=== PATIENT | female | born 1945 | race Caucasian/White ===

== ENCOUNTER 2019-05-04 14:01 | Inpatient (IN) | payer MEDICARE, BC ==
[~2019-05-04] VITALS: Ht 162.6 cm; Wt 84.8 kg
[~2019-05-04 14:01] MED LIST: AMITRIPTYLINE H25 MG PO; METOPROLOL SUCC25 MG PO; NEXIUM; PANTOPRAZOLE SO40 MG PO; ROPINIROLE HCL1 MG PO; SIMVASTATIN20 MG PO; TYLENOL WITH C1 EACH PO; VESICARE5 MG PO; Z.0.AMLODIPINE BESYL PO; Z.0.SIMVASTATIN20 MG PO
--- OUTSIDE RECORDS SUMMARY | 2019-05-04 14:05 | XMS REPORT ---
Author Author [facility] Address Unknown Phone Unavailable Care Team Providers Care Fleet Administrator Name Role Phone Unavailable Unavailable Payers Payer Name Policy Type Policy Number Effective Date Expiration Date Problems This patient has no known problems. Allergies, Adverse Reactions, Alerts Allergy Name Allergy Type Status Severity Reaction(s) Onset Date Inactive Date Treating Clinician Comments morphine DA Active SV 2017-09-04 00:00:00 Medications This patient has no known medications.
[2019-05-04] MEDS ORDERED: SODIUM CHLORIDE 0.9% 1000ML 1,000 ML IV STA (14:14)
[2019-05-04] MEDS ORDERED: METHYLPREDNISOLONE SOD SUCC 125 MG/2ML VIAL IV STA (14:14)
[2019-05-04] MEDS ORDERED: ALBUTEROL SULF 0.083% NEB SOLN 3 ML NEB NEB STA (14:14)
[2019-05-04] MEDS ORDERED: IPRATROPIUM BROMIDE 0.02% 2.5 ML NEB NEB STA (14:14)
[2019-05-04 16:19] LABS: BASOPHILS # (AUTO) 0.1 (0.0-0.1); BASOPHILS % 0.7 % (0.0-1.0); EOSINOPHILS # (AUTO) 0.2 (0.0-0.4); EOSINOPHILS % 2.3 % (0.0-6.0); HEMOGLOBIN 7.6 g/dL (12.0-16.0); LYMPHOCYTES # (AUTO) 1.6 (1.0-3.2); LYMPHOCYTES % 23.5 % (18.0-39.1); MEAN CORPUSCULAR HEMOGLOBIN 27.5 pg (28-32); MEAN CORPUSCULAR HGB CONC 30.4 g/dL (31-35); MEAN CORPUSCULAR VOLUME 90.6 fL (81-99); MONOCYTES # (AUTO) 0.6 (0.2-0.8); MONOCYTES % 8.2 % (4.4-11.3); NEUTROPHILS # (AUTO) 4.5 (2.1-6.9); NEUTROPHILS % 64.9 % (38.7-80.0); PLATELET COUNT 244 x10e3/uL (140-360); RED BLOOD COUNT 2.76 x10e6/uL (3.6-5.1); RED CELL DISTRIBUTION WIDTH 13.9 % (11.7-14.4)
[2019-05-04 16:20] LABS: BILIRUBIN,URINE NEGATIVE (NEGATIVE); CLARITY,URINE CLEAR (CLEAR); COLOR,URINE YELLOW (YELLOW); KETONES,URINE NEGATIVE (NEGATIVE); LEUKOCYTE ESTERASE ,URINE NEGATIVE (NEGATIVE); NITRITE,URINE NEGATIVE (NEGATIVE); PROTEIN,URINE DIPSTICK NEGATIVE (NEGATIVE); URINE UROBILINOGEN 0.2 mg/dL (0.2 - 1)
[2019-05-04 16:23] LABS: INR 1.25; PARTIAL THROMBOPLASTIN TIME 35.5 seconds (23.8-35.5); PROTHROMBIN TIME 16.3 seconds (11.9-14.5)
--- NOTE | 2019-05-04 16:29 | Diagnostic Imaging Report ---
EXAMINATION: CHEST SINGLE (PORTABLE) INDICATION: ^ERMD ORDER ^[id number] ^1450 ^Y COMPARISON: None FINDINGS: AP view TUBES and LINES: 2-lead pacemaker device overlying the left upper chest with leads overlying the right atrial appendage and right ventricle. LUNGS: Lungs are well inflated. Bilateral central pulmonary vascular congestion. No lobar consolidations. PLEURA: No pleural effusion or pneumothorax. HEART AND MEDIASTINUM: Moderate enlargement of the cardiac silhouette. Tortuous thoracic aorta. BONES AND SOFT TISSUES: Status post open reduction and internal fixation of the left humerus. Hardware appears intact. Soft tissues are unremarkable. UPPER ABDOMEN: No free air under the diaphragm. IMPRESSION: Cardiomegaly with associated central pulmonary vascular congestion. Signed by: Dr. Kayy Narvaez M.D. on 05/04/2019 4:25 PM
[2019-05-04 16:32] LABS: ALBUMIN 3.7 g/dL (3.5-5.0); ALBUMIN/GLOBULIN RATIO 1.1 (0.8-2.0); ANION GAP 19.5 mmol/L (8-16); CALCIUM 9.1 mg/dL (8.4-10.2); CREATININE, SERUM 0.99 mg/dL (0.57-1.11); MAGNESIUM 2.2 MG/DL (1.3-2.1); POTASSIUM 3.5 mmol/L (3.5-5.1)
[2019-05-04 16:43] LABS: BACTERIA,URINE RARE /HPF; EPITHELIAL CELLS,URINE RARE /LPF; RBC,URINE 0-5 /HPF (0-5); WBC,URINE (MAN) 0-5 /HPF (0-5)
[2019-05-04] MEDS ORDERED: FUROSEMIDE INJ 10 MG/ML 2 ML VIAL IV PRN (16:45)
[2019-05-04 16:52] LABS: CREATINE KINASE MB 3.8 ng/mL (0-5.0); THYROID STIMULATING HORMONE 2.43 uIU/mL (0.350-4.940)
[2019-05-04] MEDS ORDERED: SODIUM CHLORIDE 0.9% 500ML 500 ML IV ONE (17:00)
[2019-05-04] MEDS: AZITHROMYCIN 500MG/NS 250 ML 250 ML IV SCH (17:27)
[2019-05-04] MEDS ORDERED: SODIUM CHLORIDE 0.9% 250ML 250 ML IV ONE (17:30)
[2019-05-04] MEDS ORDERED: ONDANSETRON HCL INJ 2MG/ML 2ML 2 MG/ML VIAL IV PRN (17:30)
[2019-05-04] MEDS ORDERED: PANTOPRAZOLE 40 MG 10ML VIAL IV ONE (18:00)
[2019-05-04] MEDS ORDERED: VANCOMYCIN 1GM/NS 250 ML 250 ML IV ONE (18:30)
[2019-05-04] MEDS: CEFEPIME 1GM/NS 0.9% 50 ML 50 ML IV SCH (18:54)
[2019-05-04] MEDS ORDERED: IPRATROPIUM BROMIDE 0.02% 2.5 ML NEB NEB SCH (19:00)
[2019-05-04] MEDS ORDERED: ALBUTEROL SULF 0.083% NEB SOLN 3 ML NEB NEB SCH (19:00)
[2019-05-04 21:22] VITALS: BP 127/72
--- NOTE | 2019-05-04 21:30 | NUR ---
GOT REPORT FROM SIENA, ER NURSE. PATIENT ARRIVED VIA WHEELCHAIR. PATIENT IN NO PAIN OR DISTRESS. CALL LIGHT WITHIN REACH.
[2019-05-04 22:43] VITALS: BP 127/72
[2019-05-04] MEDS ORDERED: ROPINIROLE HCL 2 MG TAB PO SCH (22:50)
[2019-05-04 23:26] VITALS: BP 118/59
[2019-05-04] MEDS: ALBUTEROL/IPRATROPIUM 3 ML NEB INH SCH (23:30)
[2019-05-04] MEDS ORDERED: SODIUM CHLORIDE 0.9% 250ML 250 ML ONE (23:44)
[2019-05-04] MEDS: SIMVASTATIN 20 MG TAB PO SCH (23:57)
[2019-05-04] MEDS: METOPROLOL SUCCINATE 25 MG TAB XL PO SCH (23:57)
[2019-05-05] VITALS (8 sets, daily range): BP systolic 111–141; BP diastolic 55–63
--- NOTE | 2019-05-05 | NUR ---
new iv #20 gauge placed to left forearm x 3 sticks. previous iv to left forearm removed due to redness and swelling at the site. clean dressing applied.
[2019-05-05 02:15] LABS: CREATINE KINASE MB 7.3 ng/mL (0-5.0)
[2019-05-05] MEDS: ALBUTEROL/IPRATROPIUM 3 ML NEB INH SCH ×6 (03:40→23:02)
[2019-05-05 05:13] LABS: HEMATOCRIT 24.1 % (34.2-44.1); HEMOGLOBIN 7.3 g/dL (12.0-16.0); LYMPHOCYTES # (AUTO) 0.5 (1.0-3.2); LYMPHOCYTES % 9.6 % (18.0-39.1); MEAN CORPUSCULAR HEMOGLOBIN 27.1 pg (28-32); MEAN CORPUSCULAR HGB CONC 30.3 g/dL (31-35); MEAN CORPUSCULAR VOLUME 89.6 fL (81-99); MONOCYTES # (AUTO) 0.1 (0.2-0.8); MONOCYTES % 1.7 % (4.4-11.3); NEUTROPHILS # (AUTO) 4.8 (2.1-6.9); PLATELET COUNT 173 x10e3/uL (140-360); RED BLOOD COUNT 2.69 x10e6/uL (3.6-5.1); RED CELL DISTRIBUTION WIDTH 14.3 % (11.7-14.4)
[2019-05-05] MEDS ORDERED: SODIUM CHLORIDE 0.9% 250ML 250 ML ONE (05:14)
[2019-05-05 05:44] LABS: ALANINE AMINOTRANSFERASE 18 IU/L (0-55); ALBUMIN/GLOBULIN RATIO 1.1 (0.8-2.0); ALKALINE PHOSPHATASE 68 IU/L (40-150); ANION GAP 14.5 mmol/L (8-16); BLOOD UREA NITROGEN 17 mg/dL (7-26); BUN/CREATININE RATIO 19 (6-25); CALCIUM 8.5 mg/dL (8.4-10.2); CARBON DIOXIDE 20 mmol/L (22-29); CHLORIDE 109 mmol/L (98-107); CHOLESTEROL 119 MD/DL (0-199); CREATININE, SERUM 0.89 mg/dL (0.57-1.11); EST GLOMERULAR FILTRATION RATE > 60 ML/MIN (60-); GLUCOSE 177 mg/dL (74-118); HDL CHOLESTEROL 59 MG/DL (40-60); LDL CHOLESTEROL 51 MG/DL (60-130); POTASSIUM 3.5 mmol/L (3.5-5.1); SODIUM 140 mmol/L (136-145); TRIGLYCERIDES 47 MG/DL (0-149)
[2019-05-05] MEDS: CEFEPIME 1GM/NS 0.9% 50 ML 50 ML IV SCH ×2 (06:02→17:09)
--- NOTE | 2019-05-05 07:00 | NUR ---
RCD PT AT BED PT IS ALERT AND ORIENTED PT RESTING ON BED AND ON BLOOD TRANSFUSION LT FOREARM SHOWS REDNESS AND SWELLING DUE TO IV INFILTRATION BED LOW AND LOCKED CALL LIGHT IN REACH
--- NOTE | 2019-05-05 07:38 | NUR ---
GAVE REPORT TO ONCOMING NURSE. CALL LIGHT WITHIN REACH. PATIENT IN BED
--- NOTE | 2019-05-05 08:20 | NUR ---
BLOOD TRANSFUSION COMPLETED VITALS CHECKED PT RESTING ON BED
[2019-05-05] MEDS: AZITHROMYCIN 500MG/NS 250 ML 250 ML IV SCH (09:00)
[2019-05-05] MEDS: METOPROLOL SUCCINATE 25 MG TAB XL PO SCH ×2 (09:00→17:00)
[2019-05-05] MEDS: PANTOPRAZOLE 40 MG 10ML VIAL IV SCH ×2 (09:00→17:00)
--- NOTE | 2019-05-05 12:59 | NUR ---
SPOKE ABOUT PT FOR BARRIER ROUNDS, HGB IS 7.3, RECVD 2 UNITS, ON 2 ABX, POSSIBLE DISCHARGE ON 05/07/2019
[2019-05-05] MEDS ORDERED: ELIQUIS PO (14:32)
[2019-05-05 14:46] LABS: CREATINE KINASE MB 21.4 ng/mL (0-5.0)
[2019-05-05] MEDS ORDERED: FUROSEMIDE 20 MG TAB PO NR (15:45)
--- NOTE | 2019-05-05 17:00 | NUR ---
Nutrition Screen Note RD Recommendation for Physician: -Continue cardiac diet as ordered Plan of Care: RD following, monitoring for tolerance and adequacy Nutrition reason for involvement: Diagnosis Primary Diagnose(s): CHF exacerbation, COPD PMH: no H&P in chart Ht: 64in Wt: 187lb BMI: 32.1kg/m2 IBW: 120lb +/- 10% RD Assessment: (05/05) Chart reviewed. Labs and meds reviewed. 73yo F, who was admitted for CHF exacerbation. Currently on Lasix. Visited pt in the room. Pt reported good appetite prior and during hospital stay. No GI complains reported. Pt denied any chewing or swallowing difficulty. Her weight has fluctuated between 187-200lbs due to fluids gain/loss. Pt has received previous education on cardiac diet. No questions at this time. Current Diet: cardiac diet Malnutrition Evaluation (05/05/2019) The patient does not meet criteria for a specified degree of malnutrition at this time. Will re-evaluate at follow-up as appropriate. Diet Education Needs Assessment: Diet education indicated, pt is not interested. Pt reported not using any salt at home. Nutrition Care Level: low Signed: Michelle Zeng, MS, RD, LD
--- NOTE | 2019-05-05 18:12 | Consultation ---
DATE OF CONSULTATION: Cardiology Consultation HISTORY OF PRESENT ILLNESS: This is a 73-year-old woman with a history of: 1. Chronic systolic congestive heart failure. 2. Implantable cardioverter-defibrillator. 3. Atrial fibrillation. 4. Chronic obstructive pulmonary disease. Who presented to the emergency department with progressively worsening shortness of breath. The patient states that her symptoms began day prior to admission, dyspnea was moderate in intensity, no other exacerbating or relieving factors. No associated chest pain. Upon arrival here, she was noted to be hemodynamically stable with an elevated BNP with normal troponin values. REVIEW OF SYSTEMS: A 12-point review of systems was conducted and is negative otherwise stated above in the HPI. PAST MEDICAL HISTORY: As stated above in the HPI. PAST SURGICAL HISTORY: Cholecystectomy, appendectomy, ICD, hip replacement. FAMILY HISTORY: Noncontributory. SOCIAL HISTORY: No illicit drug, alcohol, or tobacco use. ALLERGIES: MORPHINE. MEDICATIONS: See medications reconciliation form. PHYSICAL EXAMINATION: VITAL SIGNS: Temperature is 97.8, heart rate is 73, respirations 16, blood pressure is 112/57, ox saturation is 98% on 2 L nasal cannula. GENERAL: A well appearing, well built, no apparent distress. Alert and oriented x3. HEENT: Head is normocephalic, atraumatic. Eyes, the extraocular muscles are intact. Conjunctivae are clear. NECK: No JVD. No bruits. CARDIOVASCULAR: Regular rate and rhythm. No murmurs. LUNGS: Clear to auscultation. ABDOMEN: Soft, nontender, nondistended. EXTREMITIES: No edema. VASCULAR: 2+ pulses. SKIN: Warm, dry, intact. NEUROLOGIC: No focal deficits noted. LABORATORY DATA: Reviewed. Hemoglobin is 7.3. Creatinine is 0.89. CK is 502, CK-MB is 8, troponin I is 0.002. BNP is 266. Chest x-ray shows cardiomegaly with central pulmonary vascular congestion. Telemetry monitoring reveals normal sinus rhythm. IMPRESSION: 1. Acute anemia. 2. Pvdoq-gx-vdtcdrd systolic congestive heart failure. 3. Chronic obstructive pulmonary disease. 4. Hypertension. 5. Hyperlipidemia. 6. Elevated cardiac enzymes. RECOMMENDATIONS: Continue current cardiovascular medications including Lasix, simvastatin, metoprolol. Treatment of anemia per primary team. Elevated enzymes, likely related to rhabdomyolysis rather than acute coronary syndrome. Continue to monitor clinically. We will check a 2D echocardiogram. DO TOMAS Montoya/GENEVA /[id number]
--- NOTE | 2019-05-05 18:41 | NUR ---
PT RESTING ON BED BED SIDE REPORT GIVEN TO ONCOMING NURSE
[2019-05-05] MEDS: ROPINIROLE HCL 1 MG TAB PO SCH (20:48)
[2019-05-05] MEDS: SIMVASTATIN 20 MG TAB PO SCH (20:48)
[2019-05-06] VITALS (7 sets, daily range): BP systolic 123–176; BP diastolic 55–79
--- NOTE | 2019-05-06 01:53 | History and Physical ---
REASON FOR CONSULT: Symptomatic anemia. HISTORY OF PRESENTING ILLNESS: A 73-year-old very pleasant white female, who is a very good historian. She is giving me such a thorough history regarding anemia workup done in the past. She stated that she has been known to have a chronic anemia with stool occult blood positive. She sees my associate, Dr. Gonzalez. She has had 4 upper endoscopies and 2 to 3 colonoscopies. One upper endoscopy revealed some ulcer, latest 3 upper endoscopies did not reveal any source of blood loss. Colonoscopy revealed diverticulosis only. She has received blood transfusion on as needed basis. She has also received intravenous iron in the past. The cause/source of anemia and the GI tract has not been identified yet. The patient cannot get a small bowel video capsule exam as she has defibrillator/pacemaker. The patient otherwise denies any nomi melena. She has a chronic paroxysmal atrial fibrillation. She was recently started on Eliquis. She got admitted in the hospital due to symptomatic due to shortness of breath and weakness on minimal exertion. Blood work revealed hemoglobin of 7.6 and MCV of 90.6. Stool was tested positive for occult blood. The patient otherwise denies any active GI symptoms. REVIEW OF SYSTEMS: A 12-point system reviewed, symptomatology is limited as per HPI. PAST MEDICAL HISTORY: Chronic congestive heart failure, atrial fibrillation, COPD, chronic anemia. PAST SURGICAL HISTORY: Cholecystectomy, appendectomy, ICD, hip replacement, multiple colonoscopies, and upper endoscopies as stated in HPI. FAMILY HISTORY: Negative for any GI or [employer] F[employer] malignancies. SOCIAL HISTORY: No smoking, alcohol, or any illicit drug use. ALLERGIES: MORPHINE. HOME MEDICATIONS: Metoprolol, ropinirole, simvastatin, Eliquis. Inpatient medication list reviewed as per MAR. PHYSICAL EXAMINATION: VITAL SIGNS: Temperature 96.6, pulse 77, respirations 20, blood pressure 141/63, oxygen saturation 93% on room air. GENERAL: Obese body habitus, not in any acute distress. Oral mucosa is moist. Anicteric sclerae. CVS: S1, S2. Irregularly irregular. LUNGS: Bilaterally grossly clear. ABDOMEN: Obese, soft, nondistended, nontender. No palpable mass or hernia. Positive bowel sounds. EXTREMITIES: Warm. No leg edema. LABORATORY DATA: WBC 5.44, hemoglobin 7.3 down from 7.6, hematocrit 24.1, MCV 89.6, platelet count 173. Sodium 140, potassium 3.5, chloride 109, bicarb 20. BUN 17, creatinine 0.89. Liver enzymes normal. Chest x-ray revealed cardiomegaly with associated central pulmonary vascular congestion. IMPRESSION: Ieodj-gs-bstpskl anemia with possible source in gastrointestinal tract. The patient is also on anticoagulant for chronic paroxysmal atrial fibrillation and other comorbidities includes chronic obstructive pulmonary disease, congestive heart failure, hypertension, hyperlipidemia. PLAN: The patient has already had extensive GI workup for evaluation of anemia and heme-positive stool. At this point of time, I recommend IV iron therapy, blood transfusion on an as-needed basis. We will defer on any endoscopy at this time. The patient is definitely at risk of having slow gastrointestinal blood loss while being on anticoagulants. One should also expect stool occult blood positive on someone, who is on anticoagulants. I thank Dr. Mcgee for allowing me to participate in the care of this patient. Jorje Garrison MD SA/GENEVA /[id number]
[2019-05-06] MEDS: ALBUTEROL/IPRATROPIUM 3 ML NEB INH SCH ×6 (02:30→23:20)
[2019-05-06 05:09] LABS: BASOPHILS % 0.3 % (0.0-1.0); EOSINOPHILS % 0.1 % (0.0-6.0); HEMATOCRIT 26.7 % (34.2-44.1); HEMOGLOBIN 8.1 g/dL (12.0-16.0); LYMPHOCYTES # (AUTO) 1.2 (1.0-3.2); LYMPHOCYTES % 11.7 % (18.0-39.1); MEAN CORPUSCULAR HEMOGLOBIN 26.6 pg (28-32); MEAN CORPUSCULAR HGB CONC 30.3 g/dL (31-35); MEAN CORPUSCULAR VOLUME 87.5 fL (81-99); MONOCYTES # (AUTO) 0.9 (0.2-0.8); MONOCYTES % 8.2 % (4.4-11.3); NEUTROPHILS # (AUTO) 8.3 (2.1-6.9); NEUTROPHILS % 79.3 % (38.7-80.0); PLATELET COUNT 182 x10e3/uL (140-360); RED BLOOD COUNT 3.05 x10e6/uL (3.6-5.1); RED CELL DISTRIBUTION WIDTH 16.1 % (11.7-14.4)
[2019-05-06] MEDS: CEFEPIME 1GM/NS 0.9% 50 ML 50 ML IV SCH ×2 (05:25→17:43)
[2019-05-06 05:27] LABS: ANION GAP 13.5 mmol/L (8-16); CALCIUM 8.3 mg/dL (8.4-10.2); CREATININE, SERUM 1.02 mg/dL (0.57-1.11); POTASSIUM 3.5 mmol/L (3.5-5.1)
--- NOTE | 2019-05-06 07:00 | NUR ---
RCD PT AT BED PT IS ALERT AND ORIENTED PT RESTING ON BED NO SIGNS OF ANY DISTRESS NOTED BED LOW AND LOCKED CALL LIGHT IN REACH
[2019-05-06] MEDS: METOPROLOL SUCCINATE 25 MG TAB XL PO SCH ×2 (09:00→17:00)
[2019-05-06] MEDS: AZITHROMYCIN 500MG/NS 250 ML 250 ML IV SCH (09:00)
[2019-05-06] MEDS: FUROSEMIDE 20 MG TAB PO SCH (09:00)
[2019-05-06] MEDS: PANTOPRAZOLE 40 MG 10ML VIAL IV SCH ×2 (09:00→17:00)
--- NOTE | 2019-05-06 13:07 | Progress Note ---
DATE: Cardiology Progress Note SUBJECTIVE: The patient is feeling better. Denies any chest pain or shortness of breath. OBJECTIVE: VITAL SIGNS: Temperature is 99.1, heart rate is 93, respirations are 18, blood pressure is 135/63, and oxygen saturation 92% on 2 L nasal cannula. GENERAL: She is a well-appearing elderly woman, lying comfortably in bed, in no apparent distress. Alert and oriented x3. HEENT: Head is normocephalic, atraumatic. CARDIOVASCULAR: She has regular rate and rhythm. LUNGS: Clear to auscultation. ABDOMEN: Soft, nontender, and nondistended. EXTREMITIES: No clubbing, cyanosis, or edema. VASCULAR: Diminished pulses. LABORATORY DATA: Reviewed. Hemoglobin 8.1. Creatinine 1. Telemetry monitoring revealed normal sinus rhythm. IMPRESSION: 1. Acute anemia. 2. Gastrointestinal bleed. 3. Euphz-vg-[place]au[place] congestive heart failure. 4. Chronic obstructive pulmonary disease. 5. Hypertension. 6. Hyperlipidemia. 7. Elevated CK and CK-MB. 8. Paroxysmal atrial fibrillation, currently in sinus rhythm. RECOMMENDATIONS: GI evaluation reviewed. Continue current cardiovascular medications. The patient likely will be a good candidate for Watchman device given significant GI bleeds on anticoagulation. We can attempt to put her on warfarin instead of Eliquis for the potential need of reversals. We will continue to follow along closely. DO TOMAS Montoya/MODL /[id number]
[2019-05-06] MEDS ORDERED: METHYLPREDNISOLONE SOD SUCC 40 MG/ML VIAL 1ML IV NR (15:30)
--- NOTE | 2019-05-06 19:04 | NUR ---
PT RESTING ON BED BED SIDE REPORT GIVEN TO ONCOMING NURSE
[2019-05-06] MEDS: ROPINIROLE HCL 1 MG TAB PO SCH (20:34)
[2019-05-06] MEDS: SIMVASTATIN 20 MG TAB PO SCH (20:34)
--- NOTE | 2019-05-06 21:59 | Progress Note ---
DATE: 05/06/2019 SUBJECTIVE: The patient reports no abdominal pain. Tolerating oral diet. Regular bowel movement, stool brown. REVIEW OF SYSTEMS: GENERAL: Weakness and lethargy have improved. CVS: No chest pain or palpitation. RESPIRATORY: No cough or expectoration. MEDICATIONS: Reviewed as per MAR. PHYSICAL EXAMINATION: VITAL SIGNS: Temperature 96, pulse 84, respirations 20, blood pressure 176/79, oxygen saturation 96% on room air. GI: Sitting comfortably at the bedside couch. Oral mucosa is moist. Anicteric sclerae. ABDOMEN: Soft, protuberant belly, nondistended, nontender. No palpable mass or hernia. Positive bowel sounds. LABORATORY DATA: Hemoglobin has come up to 8.1 from 7.3, WBC 10.43, hematocrit 26.7, MCV 87.5, platelet count 182. Sodium 140, potassium 3.5, chloride 108, bicarb 22. BUN 21, creatinine 1.02. Chest x-ray, cardiomegaly with associated central pulmonary vascular congestion. IMPRESSION: 1. Anemia, secondary to chronic blood loss, likely gastrointestinal tract. 2. Atrial fibrillation and recently she was started on Eliquis. PLAN: Hemoglobin has climbed up appropriately post transfusion. No gross GI bleeding reported. Recommend to resume Eliquis. No need to hold Eliquis from GI standpoint Patient can be discharged home to follow up with Dr. Gonzalez, the patient possibly will benefit from getting a small bowel video capsule study. Jorje Garrison MD SA/GENEVA /[id number] MOON
[2019-05-07] VITALS: BP 124/60
[2019-05-07] MEDS: ALBUTEROL/IPRATROPIUM 3 ML NEB INH SCH ×2 (02:50→08:25)
[2019-05-07 04:00] VITALS: BP 135/64
[2019-05-07 04:57] LABS: HEMATOCRIT 27.1 % (34.2-44.1); HEMOGLOBIN 8.3 g/dL (12.0-16.0); LYMPHOCYTES # (AUTO) 0.5 (1.0-3.2); LYMPHOCYTES % 6.9 % (18.0-39.1); MEAN CORPUSCULAR HEMOGLOBIN 26.8 pg (28-32); MEAN CORPUSCULAR HGB CONC 30.6 g/dL (31-35); MEAN CORPUSCULAR VOLUME 87.4 fL (81-99); MONOCYTES # (AUTO) 0.3 (0.2-0.8); MONOCYTES % 4.1 % (4.4-11.3); NEUTROPHILS # (AUTO) 5.9 (2.1-6.9); NEUTROPHILS % 88.5 % (38.7-80.0); PLATELET COUNT 180 x10e3/uL (140-360); RED CELL DISTRIBUTION WIDTH 15.7 % (11.7-14.4)
[2019-05-07 05:22] LABS: ANION GAP 12.2 mmol/L (8-16); CALCIUM 8.8 mg/dL (8.4-10.2); CREATININE, SERUM 0.93 mg/dL (0.57-1.11); POTASSIUM 4.2 mmol/L (3.5-5.1)
[2019-05-07] MEDS: CEFEPIME 1GM/NS 0.9% 50 ML 50 ML IV SCH (06:00)
[2019-05-07 07:30] VITALS: BP 135/64
[2019-05-07 07:43] VITALS: BP 130/60
[2019-05-07] MEDS ORDERED: ZITHROMAX500 MG PO (08:31)
[2019-05-07] MEDS ORDERED: COUMADIN5 MG PO (08:31)
[2019-05-07] MEDS ORDERED: CEFTIN PO (08:31)
[2019-05-07] MEDS ORDERED: MEDROL DOSPAK PO (08:31)
[2019-05-07] MEDS: AZITHROMYCIN 500MG/NS 250 ML 250 ML IV SCH (08:39)
[2019-05-07] MEDS: FUROSEMIDE 20 MG TAB PO SCH (08:39)
[2019-05-07] MEDS: PANTOPRAZOLE 40 MG 10ML VIAL IV SCH (08:39)
[2019-05-07] MEDS: METOPROLOL SUCCINATE 25 MG TAB XL PO SCH (08:40)
[2019-05-07 08:51] LABS: LYMPHOCYTES % (MANUAL) 4 % (19-48); MONOCYTES % (MANUAL) 4 % (3.4-9.0); NEUTROPHILS % (MANUAL) 92 % (40-74)
[2019-05-07 08:52] LABS: HYPOCHROMASIA MARKED; PLATELET ESTIMATE ADEQUATE; PLATELET MORPHOLOGY COMMENT NORMAL
--- NOTE | 2019-05-07 08:53 | NUR ---
IMM letter delivered and explained to pt. She verbalized understanding and state that she was ready to go home. Signed copy placed in chart. Copy to pt's transition of care folder.
[2019-05-07] MEDS ORDERED: ONDANSETRON HCL 4 MG ORAL DISINTEGRATING TAB PO PRN (09:15)
--- NOTE | 2019-05-07 10:09 | NUR ---
Right hand IV discontinued. No signs of infiltration noted. 2x2 gauze and tape placed. Taken via wheelchair by PCT to personal car. AAOX4 to time, person, place, situation. Respirations even and unlabored. Discharge instructions, rx, and all personal belongings taken with patient.
--- NOTE | 2019-05-07 10:51 | Progress Note ---
DATE: Cardiology Progress Note SUBJECTIVE: The patient is feeling better. Denies any chest pain, shortness of breath, or further GI bleeding. OBJECTIVE: VITAL SIGNS: Temperature is 97.0, heart rate 70, respirations 20, blood pressure is 130/60, oxygen saturation 95% on room air. GENERAL: Well appearing, in no apparent distress. CARDIOVASCULAR: Regular rate and rhythm. LUNGS: Clear to auscultation. ABDOMEN: Soft, nontender, and nondistended. EXTREMITIES: No clubbing, cyanosis, or edema. NEUROLOGIC: No focal deficits noted. CARDIOVASCULAR MEDICATIONS: Reviewed. LABORATORY DATA: Hemoglobin 8.3, platelets 180. Creatinine 0.93. Telemetry monitoring revealed normal sinus rhythm. IMPRESSION: 1. Acute anemia. 2. Gastrointestinal bleed. 3. Acute on chronic congestive heart failure. 4. Chronic obstructive pulmonary disease. 5. Paroxysmal atrial fibrillation, currently normal sinus rhythm. 6. Hypertension. 7. Hyperlipidemia. RECOMMENDATIONS: GI recommendations noted. They feel it is safe enough to restart anticoagulation. Given recurrent GI bleed, she is a candidate for Watchman procedure which can be evaluated as an outpatient. Resume anticoagulation with warfarin saying that if she bleeds once more, we can reverse this with vitamin K. Discussed this with the patient and she agrees to follow up for INR checks. Otherwise, continue current cardiovascular medications. DO TOMAS Montoya/MODL /[id number]
--- NOTE | 2019-05-09 05:11 | Discharge Summary ---
ADMISSION DIAGNOSES: Anemia, possible GI bleed, history of atrial fibrillation with pacemaker, chronic systolic congestive heart failure, and chronic obstructive pulmonary disease exacerbation. DISCHARGE DIAGNOSES: Acute blood loss anemia due to gastrointestinal bleed. HISTORY: The patient has a history of chronic obstructive pulmonary disease, chronic systolic congestive heart failure and atrial fibrillation. SURGICAL HISTORY: Cholecystectomy, appendectomy, appendectomy, pacemaker, and hip replacement. FAMILY HISTORY: Noncontributory. SOCIAL HISTORY: Noncontributory. HOSPITAL COURSE: A 73-year-old female with past medical history of atrial fibrillation, chronic obstructive pulmonary disease, Congestive heart failure, admitted with complaints of shortness of breath. She denies chest pain or palpitations. On admission, the hemoglobin was 7.6. The patient received 2 units of PRBCs. She has been taking Eliquis for her atrial fibrillation from Cardiology. She denies any abdominal pain, nausea and vomiting. Chest x-ray on admission showed cardiomegaly with associated pulmonary vascular congestion. Her stool for blood came back positive. Urine culture was negative. Blood culture was negative. After the 2 units of PRBCs, the hemoglobin is stable. The patient did not want to do any GI procedures, so she will discharge home and follow up with Cardiology and Gastroenterology as well as primary care in one to two weeks. She will DC the Eliquis and be started on Coumadin due to recurrent GI bleed. She will follow up with Cardiology to monitor the INR level. The patient understands discharge instructions and agrees to plan. Vital signs stable. The patient afebrile. Dictated by Fior Leyva NP MD CITLALLI Tan/GENEVA /[id number]
== END 2019-05-07 10:09 | disposition home or self-care (01) | DRG 377 ==
LOC: ER 14:01 → ERHOLD 18:44 → MED/SURG2 21:33
PROVIDERS: ADMIT Internal Medicine; ATTEND Internal Medicine
PROC: 30233N1 Transfusion of Nonautologous Red Blood Cells into Peripheral Vein, Percutaneous Approach (ICD-10-PCS; principal; 2019-05-04)
DX: K92.2 Gastrointestinal hemorrhage, unspecified (principal); I50.23 Acute on chronic systolic (congestive) heart failure; D62 Acute posthemorrhagic anemia; J44.1 Chronic obstructive pulmonary disease with (acute) exacerbation; I48.0 Paroxysmal atrial fibrillation; I11.0 Hypertensive heart disease with heart failure; Z95.810 Presence of automatic (implantable) cardiac defibrillator; Z90.49 Acquired absence of other specified parts of digestive tract; Z88.5 Allergy status to narcotic agent; E78.5 Hyperlipidemia, unspecified; Z79.01 Long term (current) use of anticoagulants
CPT/HCPCS: 36415; 71045; 80048; 80053; 80061; 81001; 82270; 82550; 82553; 83605; 83735; 83880; 84443; 84484; 85025; 85610; 85730; 86850; 86900; 86920; 87040; 87086; 93005; 94640; 99284; J0456; J0692; J2920; J2930; J3370; J7030; J7040; J7050; P9016

== ENCOUNTER → 2019-08-12 | Day surgery (SDC) | payer MEDICARE, BC ==
[2019-08-07 10:42] LABS: BASOPHILS # (AUTO) 0.1 (0.0-0.1); BASOPHILS % 0.9 % (0.0-1.0); EOSINOPHILS # (AUTO) 0.4 (0.0-0.4); EOSINOPHILS % 5.7 % (0.0-6.0); HEMATOCRIT 36.6 % (34.2-44.1); HEMOGLOBIN 11.3 g/dL (12.0-16.0); LYMPHOCYTES # (AUTO) 1.2 (1.0-3.2); LYMPHOCYTES % 17.7 % (18.0-39.1); MEAN CORPUSCULAR HGB CONC 30.9 g/dL (31-35); MEAN CORPUSCULAR VOLUME 94.1 fL (81-99); MONOCYTES # (AUTO) 0.5 (0.2-0.8); MONOCYTES % 7.8 % (4.4-11.3); NEUTROPHILS # (AUTO) 4.7 (2.1-6.9); NEUTROPHILS % 67.8 % (38.7-80.0); PLATELET COUNT 214 x10e3/uL (140-360); RED BLOOD COUNT 3.89 x10e6/uL (3.6-5.1); RED CELL DISTRIBUTION WIDTH 18.3 % (11.7-14.4)
[2019-08-07 10:44] LABS: INR 1.74
[2019-08-07 10:51] LABS: ALANINE AMINOTRANSFERASE 15 IU/L (0-55); ALBUMIN 3.2 g/dL (3.5-5.0); ALBUMIN/GLOBULIN RATIO 0.9 (0.8-2.0); ALKALINE PHOSPHATASE 76 IU/L (40-150); BLOOD UREA NITROGEN 13 mg/dL (7-26); BUN/CREATININE RATIO 15 (6-25); CALCIUM 9.8 mg/dL (8.4-10.2); CARBON DIOXIDE 26 mmol/L (22-29); CHLORIDE 105 mmol/L (98-107); CREATININE, SERUM 0.86 mg/dL (0.57-1.11); EST GLOMERULAR FILTRATION RATE > 60 ML/MIN (60-); GLUCOSE 92 mg/dL (74-118); SODIUM 140 mmol/L (136-145)
[~2019-08-12] VITALS: Ht 162.6 cm; Wt 83.9 kg
[~2019-08-12] MED LIST changes: +BENZOCAINE 20% SPR 60 ML CAN ONE; +CEFTIN PO; +COUMADIN5 MG PO; +ELIQUIS PO; +FENTANYL CITRATE/PF 100MCG/2 ML INJ ONE; +FUROSEMIDE40 MG PO; +IRON PO; +LIDOCAINE HCL 2% LOCAL INJ 5 ML SDV VIAL INJ ONE; +MEDROL DOSPAK PO; +METOPROLOL PO; +MIDAZOLAM HCL 2 MG/2 ML VIAL ONE; +PROPOFOL IV EMULSION 10 MG/ML 20 ML VIAL ONE; +SODIUM CHLORIDE 0.9% 1000ML 1,000 ML ONE; +WARFARIN SODIUM5 MG PO; +ZITHROMAX500 MG PO
--- OUTSIDE RECORDS SUMMARY | 2019-08-12 06:09 | XMS REPORT | Summary of Care ---
Author Author [facility] - Health Organization [facility] - Health Address Unknown Phone Unavailable Care Team Providers Care Lead Ios Developer Name Role Phone Herbert Ziegler PCP Reason for Visit * Auth/Cert Referred By Contact Referred To Contact Status Reason Specialty Diagnoses / Procedures [address] [address] Medicine - Diagnoses Inpatient only Watchman left atrial appendage closure device P rocedures [facility] DOPPLER ECHO HEART,COMPLETE [facility] D[facility]ER COLOR FLOW VELOCITY MAP UT ECHO TRANSESOPHAG R-T 2D W/PRB IMG ACQUISJ I&R Encounter Details Care Team Description [place] [address] [place] [address] [phone], [facility] Cardiac Proc Room Anesthesia, [facility] Ep Lab Chest pain, unspecified type (Primary Dx); Presence of Watchman left atrial appendage closure device; Paroxysmal A-fib 06/26/2019 [facility] Encounter - Heart Station, [address] [place] [address] Allergies Comments Active Allergy Reactions Severity Noted Date Morphine Unknown - See 06/13/2019 comments documented as of this encounter (statuses as of 06/27/2019) Medications End Date Status Medication Sig Dispensed Refills Start Date Suspended simvastatin 20 mg tablet Take 20 mg by 0 mouth at bedtime. Suspended metoprolol succinate XL Take 25 mg by 0 25 mg 24 hr tablet mouth daily. Suspended rOPINIRole 2 mg tablet Take 2 mg by 0 mouth 3 (three) times daily. Suspended furosemide 40 mg tablet Take 40 mg by 0 mouth daily. Suspended Pantoprazole 40 mg Take 40 mg by 0 delayed-release mouth daily. suspension Suspended warfarin 5 mg tablet Take 5 mg by 0 mouth daily. documented as of this encounter (statuses as of 06/27/2019) Active Problems Problem Noted Date Presence of Watchman left atrial appendage closure device 06/26/2019 documented as of this encounter (statuses as of 06/27/2019) Social History Date Tobacco Use Types Packs/Day Years Used Never Assessed Sex Assigned at Date Recorded Not on file Industry Job Start Date Occupation Not on file Not on file Not on file Travel End Travel History Travel Start No recent travel history available. documented as of this encounter Last Filed Vital Signs Reading Time Taken Comments Vital Sign - - Blood Pressure - - Pulse - - Temperature - - Respiratory Rate - - Oxygen Saturation - - Inhaled Oxygen Concentration 84.2 kg (185 lb 9.6 oz) 06/13/2019 1:58 PM CDT Weight 162.6 cm (5' 4") 06/13/2019 1:58 PM CDT Height 31.76 06/26/2019 8:00 AM CDT Body Mass Index documented in this encounter Plan of Treatment Date/Time Name Type Priority Associated Diagnoses 06/26/2019 9:31 AM CDT Prepare Packed RBC (in Blood Bank RAMOS Chest pain, unspecified units), 2 Units type Order Schedule Name Type Priority Associated Diagnoses ONCE for 1 Occurrences starting 06/27/2019 until 06/27/2019 PROTHROMBIN TIME / INR LAB Routine Paroxysmal A-fib Presence of Watchman left atrial appendage closure device Health Maintenance Due Date Last Done Comments DTaP,Tdap,and Td Vaccines 1962 (1 - Tdap) Zoster Recombinant 1993 Vaccine (SHINGRIX) (1 of 2) Medicare Wellness Visit 2008 Osteoporosis Screening 2008 PNEUMOCOCCAL VACCINES 65+ 2008 (1 of 2 - PCV13) INFLUENZA VACCINE (#1) 2019 documented as of this encounter Procedures Comments Procedure Name Priority Date/Time Associated Diagnosis CATH PROCEDURE LOG Routine 06/26/2019 12:16 PM CDT PREPARE PACKED RBC RAMOS 06/26/2019 Chest pain, unspecified 9:31 AM CDT type ABORH CONFIRMATION Routine 06/26/2019 8:45 AM CDT CBC WITH DIFFERENTIAL Routine 06/26/2019 Chest pain, unspecified 8:18 AM CDT type PROTHROMBIN TIME / INR Routine 06/26/2019 Chest pain, unspecified 8:18 AM CDT type CBC WITH DIFF Routine 06/26/2019 Chest pain, unspecified 8:18 AM CDT type BASIC METABOLIC PANEL Routine 06/26/2019 Chest pain, unspecified (NA, K, CL, CO2, GLUCOSE, 8:18 AM CDT type BUN, CREATININE, CA) TYPE AND SCREEN RAMOS 06/26/2019 Chest pain, unspecified 8:10 AM CDT type NOTICE OF PRIVACY Routine 06/26/2019 PRACTICES 7:48 AM CDT CONSENT/REFUSAL FOR Routine 06/26/2019 DIAGNOSIS AND TREATMENT 7:46 AM CDT ASSIGNMENT OF BENEFITS Routine 06/26/2019 7:45 AM CDT documented in this encounter Results * ABORH CONFIRMATION (06/26/2019 8:45 AM CDT) Pathologist [facility] ABO & RH O Positive LAB Comment: Performed at [facility] Laboratory [facility] Blood Bank [address] [place] [phone] Toll Free: [phone] CLIA No. [id number] Specimen Performing Organization Address City/State/Zipcode Phone Number BLD LAB * CBC WITH DIFFERENTIAL (06/26/2019 8:18 AM CDT) Pathologist [facility] WBC 6.40 4.30 - 11.10 [facility] 10*3/L [facility] RBC 3.52 (L) 3.93 - 5.25 10*6/L [facility] HGB 9.5 (L) 11.6 - 15.0 g/dL [facility] HCT 30.4 (L) 35.7 - 45.2 % [facility] MCV 86.4 80.6 - 95.5 fL [facility] MCH 27.0 25.9 - 32.8 pg [facility] MCHC 31.3 (L) 31.6 - 35.1 g/dL [facility] RDW-SD 50.4 (H) 39.0 - 49.9 fL [facility] RDW-CV 16.1 (H) 12.0 - 15.5 % [facility] PLT 235 166 - 358 10*3/L [facility] MPV 10.2 9.5 - 12.9 fL [facility] NRBC/100 WBC 0.0 0.0 - 10.0 /100 WBCs [facility] NRBC x10^3 <0.01 10*3/L [facility] GRAN MAT (NEUT) 65.4 % [facility] % [facility] IMM GRAN % 0.30 % [facility] LYMPH % 20.2 % [facility] MONO % 8.9 % [facility] EOS % 4.4 % [facility] BASO % 0.8 % [facility] GRAN MAT 4.19 1.88 - 7.09 10*3/uL [facility] x10^3(ANC) [facility] IMM GRAN x10^3 <0.03 0.00 - 0.06 10*3/uL [facility] LYMPH x10^3 1.29 (L) 1.32 - 3.29 10*3/uL [facility] MONO x10^3 0.57 0.33 - 0.92 10*3/uL [facility] EOS x10^3 0.28 0.03 - 0.39 10*3/uL [facility] BASO x10^3 0.05 0.01 - 0.07 10*3/uL [facility] Specimen Blood Performing Organization Address City/State/Zipcode Phone Number [facility] CLIA: [id number], [address] [place] [address] [facility] * BASIC METABOLIC PANEL (NA, K, CL, CO2, GLUCOSE, BUN, CREATININE, CA) (06/26/2019 8:18 AM CDT) NA 138 135 - 145 mmol/L [facility] K 3.4 (L) 3.5 - 5.0 mmol/L [facility] CL 103 98 - 108 mmol/L [facility] CO2 TOTAL 29 23 - 31 mmol/L [facility] AGAP 6 2 - 16 [facility] BUN 17 7 - 23 mg/dL [facility] GLUCOSE 107 70 - 110 mg/dL [facility] CREATININE 0.84 0.50 - 1.04 mg/dL [facility] CALCIUM 8.8 8.6 - 10.6 mg/dL [facility] eGFR 65.9 mL/min/1.73m2 [facility] Calculation [facility] (Non-[facility]) eGFR 79.9 mL/min/1.73m2 [facility] Calculation [facility] ([facility]) Specimen Blood Narrative Performed At Association of Glomerular Filtration Rate (GFR) and Staging of Kidney Disease* [facility] + + + + [facility] | GFR (mL/min/1.73 m2)| With Kidney Damage|Without Kidney Damage CAMPUS + + + + |>90|Stage one| Normal + + + + |60-89|Stage two| Decreased GFR + + + + |30-59|Stage three| Stage three + + + + |15-29|Stage four | Stage four + + + + |<15 (or dialysis)|Stage five | Stage five + + + + *Each stage assumes the associated GFR level has been in effect for at least three months.Stages 1 to 5, with or without kidney disease, indicate chronic kidney disease. Notes: Determination of stages one and two (with eGFR >59mL/min/1.73 m2) requires estimation of kidney damage for at least three months as defined by structural or functional abnormalities of the kidney, manifested by either: Pathological abnormalities or Markers of kidney damage (including abnormalities in the composition of the blood or urine or abnormalities in imaging tests). Performing Organization Address City/State/Zipcode Phone Number [facility] CLIA: [id number], [address] [place] [address] [facility] * PROTHROMBIN TIME / INR (06/26/2019 8:18 AM CDT) PROTIME PATIENT 20.1 (H) 10.1 - 12.6 Seconds [facility] SERVICES-[facility] INR 1.8Comment: Normal INR <1.1; [facility] Warfarin Therapeutic range 2.0 [facility] to 3.0 or 2.5 to 3.5, [facility] depending upon the indications. Specimen Blood Performing Organization Address City/State/Zipcode Phone Number [facility] CLIA: [id number], [address] [place] [address] [facility] * Type and Screen - ONCE RAMOS (06/26/2019 8:10 AM CDT) ABO & RH O Positive LAB Comment: Performed at [facility] Laboratory Services - [facility] Blood Bank [address] [place] [id number] Toll Free: [phone] CLIA No. [id number] IAT Negative LAB Comment: Performed at [facility] Laboratory Services - [facility] Blood Bank [address] [place] [phone] Toll Free: [phone] CLIA No. [id number] Specimen VENOUS Performing Organization Address City/State/Zipcode Phone Number BLD LAB documented in this encounter Visit Diagnoses Diagnosis Chest pain, unspecified type - Primary Presence of Watchman left atrial appendage closure device Paroxysmal A-fib Atrial fibrillation documented in this encounter Insurance Type Payer Benefit Subscriber ID Effective Phone Address Plan / Dates Group Medicare MEDICARE MEDICARE xxxxxxxxxxx 2008-P [phone] [address] resent [id number] [employer]IGITTE KUMAR [id number] PPO/POS BCBS OF [facility] BCBS OF [id number] 2017-P EMPLOYEE [place] resent EMPLOYEE PLAN documented as of this encounter
--- OUTSIDE RECORDS SUMMARY | 2019-08-12 06:10 | XMS REPORT | Summary of Care ---
Author Author [facility] - Health Organization [facility] - Health Address Unknown Phone Unavailable Care Team Providers Care Industrial Equipment Mechanic Name Role Phone KarlieJoseHerbert S PCP Reason for Visit * Reason Comments Transition Of Care Encounter Details Care Team Description Date Type Department Ivana Griffin, RN [address] [place] [id number] Transition Of Care 06/30/2019 Transition of [facility] Allergies Comments Active Allergy Reactions Severity Noted Date Morphine Unknown - See 06/13/2019 comments documented as of this encounter (statuses as of 06/30/2019) Medications End Date Status Medication Sig Dispensed Refills Start Date Active simvastatin 20 mg tablet Take 20 mg by 0 mouth at bedtime. Active metoprolol succinate XL Take 25 mg by 0 25 mg 24 hr tablet mouth daily. Active rOPINIRole 2 mg tablet Take 2 mg by 0 mouth 3 (three) times daily. Active furosemide 40 mg tablet Take 40 mg by 0 mouth daily. Active Pantoprazole 40 mg Take 40 mg by 0 delayed-release mouth daily. suspension Active warfarin 5 mg tablet Take 5 mg by 0 mouth daily. documented as of this encounter (statuses as of 06/30/2019) Active Problems Problem Noted Date Presence of Watchman left atrial appendage closure device 06/26/2019 documented as of this encounter (statuses as of 06/30/2019) Social History Date Tobacco Use Types Packs/Day Years Used Never Assessed Sex Assigned at Date Recorded Not on file Industry Job Start Date Occupation Not on file Not on file Not on file Travel End Travel History Travel Start No recent travel history available. documented as of this encounter Last Filed Vital Signs Not on filedocumented in this encounter Plan of Treatment Health Maintenance Due Date Last Done Comments DTaP,Tdap,and Td Vaccines 1962 (1 - Tdap) Zoster Recombinant 1993 Vaccine (SHINGRIX) (1 of 2) Medicare Wellness Visit 2008 Osteoporosis Screening 2008 PNEUMOCOCCAL VACCINES 65+ 2008 (1 of 2 - PCV13) INFLUENZA VACCINE (#1) 2019 documented as of this encounter Results Not on filedocumented in this encounter Insurance Type Payer Benefit Subscriber ID Effective Phone Address Plan / Dates Group Medicare MEDICARE MEDICARE xxxxxxxxxxx 2008-P [phone] resent [id number] [place]IGIT[employer] KUMAR [id number] PPO/POS BCBS OF [facility] BCBS OF [id number] 2017-P [place]OYEE [place] resent EMPLOYEE PLAN documented as of this encounter
--- OUTSIDE RECORDS SUMMARY | 2019-08-12 06:10 | XMS REPORT | Summary of Care ---
Author Author [facility] - Health Organization [facility] - Health Address Unknown Phone Unavailable Care Team Providers Care Auto Body Repair Teacher Name Role Phone Celmente Ziegler PCP Reason for Referral * (Routine) Referred By Contact Referred To Contact Status Reason Specialty Diagnoses / Procedures Ella Cooper MD [address] [address] Clemente Ziegler [address] [address] New Request Diagnoses Presence of Watchman left atrial appendage closure device P rocedures Discharge Follow-up: PCP CLEMENTE ZIEGLER; 3-5 Days * (Routine) Referred By Contact Referred To Contact Status Reason Specialty Diagnoses / [place] [address] [address] New Request IM-CARDIOVASCULA Diagnoses R DISEASE Presence of Watchman left atrial appendage closure device P rocedures Discharge Follow-Up: Specialty Service IM-CARDIOVASCULAR DISEASE; 2 Weeks Reason for Visit * Auth/Cert Referred By Contact Referred To Contact Status Reason Specialty Diagnoses / Procedures Clc 4b [address] [place] [address] Medicine - Diagnoses Inpatient only Watchman left atrial appendage closure device P rocedures MD DOPPLER ECHO HEART,COMPLETE MD DOPPLER COLOR FLOW VELOCITY MAP MD ECHO TRANSESOPHAG R-T 2D W/PRB IMG ACQUISJ I&R Encounter Details Care Team Description [place] [address] [facility] [address] [place] [address] [phone] [place] [address] [facility] [address] [place] [address] [phone] 1, Clc Inpatient Services Director Presence of Watchman left atrial appendage closure device 06/26/2019 Hospital [facility] Health - Encounter Medicine/Surgery CLC 4B 06/27/2019 [address] [place] [address] Allergies Comments Active Allergy Reactions [...] Signs Reading Time Taken Comments Vital Sign 98/42 06/27/2019 11:00 AM CDT Blood Pressure 66 06/27/2019 11:00 AM CDT Pulse 37.2 C (99 F) 06/27/2019 11:00 AM CDT Temperature 18 06/27/2019 11:00 AM CDT Respiratory Rate 98% 06/27/2019 11:00 AM CDT Oxygen Saturation - - Inhaled Oxygen Concentration - - Weight - - Height - - Body Mass Index documented in this encounter Discharge Instructions * Attachments The following attachments cannot be sent through Care Everywhere.* [facility] A Patient's Guide to Using Warfarin (Coumadin) (Vietnamese) * Blood Thinners (Anticoagulants), Using (Vietnamese) * Blood Thinners: Using Warfarin - VIDEO (Vietnamese) * Warfarin tablets (Vietnamese) * Warfarin, What to Know When Taking (Vietnamese) documented in this encounter Progress Notes * Franki Bush FNP - 06/27/2019 8:50 AM CDT Brief Post-Cath/EP/Watchman Procedure Right groin suture removed without complications. Pt denies any pain to site. Si te clean, dry, soft, and without hematoma. Gauze and tegaderm placed. Wound care instructions and infection warning signs given to patient. Patient verbalized u nderstanding. Patient tolerated procedure well. KORY Zacarias 06/27/2019 8:51 AM * Mile Diaz RN - 06/26/2019 3:47 PM CDT Care Management Social Functional Assessment Patient Name: Mojgan Delgado Age: [age] year old Sex: female 13N Previous admit date: N/A Current diagnosis and co-morbidities: Watchman left atrial appendage closure device Readmission Questions: Was patient discharged from any acute care hospital within the last 30 days: No Social Functional Assessment: Primary language spoken/preferred: Vietnamese Mental Status: Alert & Oriented to Person,Place & Time Information given by: Self Patient's support system: Other Name and number of support system: Светлана Clark (friend) [phone] Primary Bacteriologist Dairy: Self MPOA: Same as support system Living Arrangement: Home Address of living arrangement : [facility] [address] [facility] [address] Persons living in home: Self Barriers to returning home: None Baseline functional status- ambulation: Independent Functional status-baseline personal care: Independent Baseline functional status- driving: Independent Baseline functional status- grocery shopping: Independent Functional status-baseline housekeeping: Independent Functional status-baseline meal prep: Independent Current functional status same as prior: Yes Do you have a PCP?: Yes Name of PCP: Clemente Ziegler Home Health Care Agency: No Provider Services: No DME Company: No Equipment: Rollator;Walker;Cane Hemodialysis: No Community resources utilized: None Funding Resources: Medicare A & B Prescription coverage plan: [facility] meds are filled: Other Other pharmacy: [id number] [place], [place] - [address] [facility] Vitor FERRER Anticipated services prior to disharge: None Expected mode of discharge transportation: Personal vehicle;Same as support syst em Additional info required for discharge planning: No needs identified Recommended discharge plan: Home Any issues or concerns with obtaining/affording your medications at home: no. Are you or your support system able to machine operator picker medications at discharge: yes. D escribe: no issues. SFA Complete: Social Functional Assessment complete: Yes Alcohol Use Screening (AUDIT-C) How often do you have a drink containing alcohol?: Never SCORE: 0 Did patient elect to have resources provided: No Actions taken: Provided support Role of Care Management explained. Mile Diaz RN BSN Customs Port Director- [facility] Department of Care Management O: [phone] E: [email or web address] documented in this encounter Plan of Treatment Health Maintenance Due Date Last Done Comments DTaP,Tdap,and Td Vaccines 1962 (1 - Tdap) Zoster Recombinant 1993 Vaccine (SHINGRIX) (1 of 2) Medicare Wellness Visit 2008 Osteoporosis Screening 2008 PNEUMOCOCCAL VACCINES 65+ 2008 (1 of 2 - PCV13) INFLUENZA VACCINE (#1) 2019 documented as of this encounter Procedures Comments Procedure Name Priority Date/Time Associated Diagnosis CBC WITH DIFFERENTIAL Routine 06/27/2019 2:44 AM CDT CBC WITH DIFF Routine 06/27/2019 2:44 AM CDT BASIC METABOLIC PANEL Routine 06/27/2019 (NA, K, CL, CO2, GLUCOSE, 2:44 AM CDT BUN, CREATININE, CA) MAGNESIUM Routine 06/27/2019 2:44 AM CDT documented in this encounter Results * CBC WITH DIFFERENTIAL (06/27/2019 2:44 AM CDT) WBC 5.68 4.30 - 11.10 [facility] 10*3/L [facility] RBC 3.11 (L) 3.93 - 5.25 10*6/L [facility] HGB 8.3 (L) 11.6 - 15.0 g/dL [facility] HCT 27.1 (L) 35.7 - 45.2 % [facility] MCV 87.1 80.6 - 95.5 fL [facility] MCH 26.7 25.9 - 32.8 pg [facility] MCHC 30.6 (L) 31.6 - 35.1 g/dL [facility] RDW-SD 50.2 (H) 39.0 - 49.9 fL [facility] RDW-CV 15.9 (H) 12.0 - 15.5 % [facility] PLT 174 166 - 358 10*3/L [facility] MPV 10.2 9.5 - 12.9 fL [facility] NRBC/100 WBC 0.0 0.0 - 10.0 /100 WBCs [facility] NRBC x10^3 <0.01 10*3/L [facility] GRAN MAT (NEUT) 86.2 % [facility] % [facility] IMM GRAN % 0.40 % [facility] LYMPH % 8.6 % [facility] MONO % 4.6 % [facility] EOS % 0.0 % [facility] BASO % 0.2 % [facility] GRAN MAT 4.90 1.88 - 7.09 10*3/uL [facility] x10^3(ANC) [facility] IMM GRAN x10^3 <0.03 0.00 - 0.06 10*3/uL [facility] LYMPH x10^3 0.49 (L) 1.32 - 3.29 10*3/uL [facility] MONO x10^3 0.26 (L) 0.33 - 0.92 10*3/uL [facility] EOS x10^3 <0.03 (L) 0.03 - 0.39 10*3/uL [facility] BASO x10^3 <0.03 0.01 - 0.07 10*3/uL [facility] Specimen Blood - ARM, LEFT Performing Organization Address City/State/Zipcode Phone Number [facility] CLIA: [id number], [address] [place], [place] [id number] [facility] * Basic Metabolic Panel (NA, K, CL, CO2, GLUCOSE, BUN, CREATININE, CA) (06/27/2019 2:44 AM CDT) NA 136 135 - 145 mmol/L [facility] K 3.7 3.5 - 5.0 mmol/L [facility] CL 104 98 - 108 mmol/L [facility] CO2 TOTAL 25 23 - 31 mmol/L [facility] AGAP 7 2 - 16 [facility] BUN 17 7 - 23 mg/dL [facility] GLUCOSE 147 (H) 70 - 110 mg/dL [facility] CREATININE 0.74 0.50 - 1.04 mg/dL [facility] CALCIUM 8.5 (L) 8.6 - 10.6 mg/dL [facility] eGFR 76.3 mL/min/1.73m2 [facility]culation [facility] ([facility] eGFR 92.5 mL/min/1.73m2 [facility] Specimen Blood - ARM, LEFT Narrative Performed At Association of Glomerular Filtration Rate (GFR) and Staging of Kidney Disease* [facility] + + + + SERVICES- [place] [place] | GFR (mL/min/1.73 m2)| With Kidney Damage|Without [...] tests). Performing Organization Address City/State/Zipcode Phone Number [facility] CLIA: [id number], [address] [place], [place] [address] [facility] * Magnesium Serum (06/27/2019 2:44 AM CDT) MAGNESIUM 2.1 1.7 - 2.4 mg/dL [facility] Specimen Blood - ARM, LEFT Performing Organization Address City/State/Zipcode Phone Number [facility] CLIA: [id number], [address] [place] [address] [facility] documented in this encounter Visit Diagnoses Diagnosis Presence of Watchman left atrial appendage closure device - Primary documented in this encounter Administered Medications Action Date Dose Rate Site Medication Order MAR Action 06/26/2019 10:53 PM CDT 650 mg acetaminophen (TYLENOL) tablet 650 mg Given 650 mg, Oral, Q6HPRN, Starting Monica 06/26/19 at 1509, Until Discontinued, Routine, Pain (scale 1-3) 06/27/2019 9:31 AM CDT 100 mg docusate (COLACE) capsule 100 mg Given 100 mg, Oral, DAILY, First dose on Sun06/27/19 at 0900, Until Discontinued, Routine furosemide (LASIX) tablet 40 mg 40 mg, Oral, DAILY, First dose on Sun06/28/19 at 0900, Until Discontinued, Routine metoprolol tartrate (LOPRESSOR) tablet 25 mg 25 mg, Oral, DAILY, First dose on Sun06/27/19 at 0900, Until Discontinued, Routine 06/27/2019 9:30 AM CDT 40 mg pantoprazole (PROTONIX) EC tablet 40 mg Given 40 mg, Oral, DAILY, First dose on Sun06/27/19 at 0900, Until Discontinued, Routine simvastatin (ZOCOR) tablet 20 mg 20 mg, Oral, QHS, First dose on Sun06/27/19 at 2100, Until Discontinued, Routine warfarin (COUMADIN) 7.5 mg 7.5 mg, Oral, QMON/WEDS/FRI AT 1700, First dose on 06/30/19 at 1700, Until Discontinued, Routine warfarin (COUMADIN) tablet 5 mg 5 mg, Oral, QTUE/THURS/SAT/SUN AT 1700, First dose on 06/28/19 at 1700, Until Discontinued, Routine Action Date Dose Rate Site Medication Order MAR Action 06/27/2019 9:31 AM CDT 7.5 mg warfarin (COUMADIN) 7.5 mg Given 7.5 mg, Oral, ONCE NOW, 1 dose, Sun06/27/19 at 0930, Routine documented in this encounter Insurance Type Payer Benefit Subscriber ID Effective Phone Address Plan / Dates Group Medicare MEDICARE MEDICARE xxxxxxxxxxx 2008-P [id number] BRIGITTE KUMAR [phone] PPO/POS BCBS OF [facility] BCBS OF [id number] 2017-P EMPL[place]EE [place] [employer] documented as of this encounter"
[2019-08-12 06:57] VITALS: BP 134/62
[2019-08-12 09:25] VITALS: BP 105/63
[2019-08-12 09:30] VITALS: BP 111/69
--- NOTE | 2019-08-12 09:33 | NUR ---
PROCEDURE NOTE- 0903- patient taken to OR room #6 for elective TERRENCE. Anesthesia at bedside. Patient hooked to monitors. 0915- MD arrives in room. 0916- Time out done with all participating staff.All agree. 09- TERRENCE probe in. 09- TERRENCE probe out. VSS and patient tolerated procedure well. Transferred to bay #10 with anesthesia at bedside. Full report given to JAMES Park.
[2019-08-12 09:45] VITALS: BP 117/69
[2019-08-12 10:00] VITALS: BP 122/62
--- NOTE | 2019-08-12 10:10 | NUR ---
IV to right hand removed. Dressing placed per unit protocol. Dressing to right hand is clean,dry, and intact. Reviewed discharge instructions with patient and patient's sister Светлана Arredondo at bedside. Reviewed discharge instructions, medication reconciliation, stop warfarin, start aspirin 81mg po daily, follow up instructions, diet, patient may eat or drink at 1115. Patient and family verbalized understanding and had no questions at this time. 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 Patient discharged with belongings. No distress noted at time of discharge.
== END | disposition home or self-care (01) ==
LOC: CATH LAB 06:07
PROVIDERS: ATTEND Internal Medicine Interventional Cardiology
DX: I48.91 Unspecified atrial fibrillation (principal); Z95.818 Presence of other cardiac implants and grafts; Z95.0 Presence of cardiac pacemaker; G47.33 Obstructive sleep apnea (adult) (pediatric); J44.9 Chronic obstructive pulmonary disease, unspecified; I10 Essential (primary) hypertension; I87.2 Venous insufficiency (chronic) (peripheral); D64.9 Anemia, unspecified; Z88.6 Allergy status to analgesic agent; Z68.32 Body mass index [BMI] 32.0-32.9, adult; Z82.49 Family history of ischemic heart disease and other diseases of the circulatory system; Z82.3 Family history of stroke
CPT/HCPCS: 36415; 80053; 85025; 85610; 93312; 93320; 93325; J2001; J2250; J2704; J3010; J7030

== ENCOUNTER 2020-11-02 09:12 | Inpatient (IN) | payer MEDICARE, BC ==
[~2020-11-02] VITALS: Ht 162.6 cm; Wt 83.9 kg
[~2020-11-02 09:12] MED LIST changes: -BENZOCAINE 20% SPR 60 ML CAN ONE; -FENTANYL CITRATE/PF 100MCG/2 ML INJ ONE; -LIDOCAINE HCL 2% LOCAL INJ 5 ML SDV VIAL INJ ONE; -MIDAZOLAM HCL 2 MG/2 ML VIAL ONE; -PROPOFOL IV EMULSION 10 MG/ML 20 ML VIAL ONE; -SODIUM CHLORIDE 0.9% 1000ML 1,000 ML ONE
[2020-11-02 10:11] LABS: BASOPHILS % 0.4 % (0.0-1.0); EOSINOPHILS # (AUTO) 0.1 (0.0-0.4); EOSINOPHILS % 1.4 % (0.0-6.0); LYMPHOCYTES # (AUTO) 0.9 (1.0-3.2); LYMPHOCYTES % 11.5 % (18.0-39.1); MEAN CORPUSCULAR HEMOGLOBIN 25.2 pg (28-32); MEAN CORPUSCULAR HGB CONC 29.7 g/dL (31-35); MONOCYTES # (AUTO) 0.5 (0.2-0.8); MONOCYTES % 5.9 % (4.4-11.3); NEUTROPHILS # (AUTO) 6.3 (2.1-6.9); NEUTROPHILS % 80.2 % (38.7-80.0); PLATELET COUNT 250 x10e3/uL (140-360); RED BLOOD COUNT 2.26 x10e6/uL (3.6-5.1); RED CELL DISTRIBUTION WIDTH 14.8 % (11.7-14.4)
[2020-11-02 10:15] LABS: HEMOGLOBIN 5.7 g/dL (12.0-16.0)
[2020-11-02 10:16] LABS: HEMATOCRIT 19.2 % (34.2-44.1)
[2020-11-02 10:56] LABS: HEMATOCRIT 21.6 % (34.2-44.1); HEMOGLOBIN 6.3 g/dL (12.0-16.0)
[2020-11-02 10:59] LABS: OVALOCYTES FEW; PLATELET ESTIMATE ADEQUATE; RBC MORPHOLOGY COMMENT NORMAL
[2020-11-02 11:00] LABS: PLATELET MORPHOLOGY COMMENT NORMAL
[2020-11-02] MEDS ORDERED: SODIUM CHLORIDE 0.9% 250ML 250 ML IV ONE ×2 (11:00→11:30)
[2020-11-02 11:36] LABS: ALANINE AMINOTRANSFERASE 46 IU/L (0-55); ALBUMIN 3.4 g/dL (3.5-5.0); ALBUMIN/GLOBULIN RATIO 1.2 (0.8-2.0); ALKALINE PHOSPHATASE 58 IU/L (40-150); ANION GAP 14.9 mmol/L (8-16); BLOOD UREA NITROGEN 26 mg/dL (7-26); BUN/CREATININE RATIO 31 (6-25); CALCIUM 8.3 mg/dL (8.4-10.2); CARBON DIOXIDE 21 mmol/L (22-29); CHLORIDE 102 mmol/L (98-107); CREATININE, SERUM 0.84 mg/dL (0.57-1.11); EST GLOMERULAR FILTRATION RATE > 60 ML/MIN (60-); GLUCOSE 133 mg/dL (74-118); POTASSIUM 3.9 mmol/L (3.5-5.1); SODIUM 134 mmol/L (136-145)
[2020-11-02] MEDS ORDERED: SODIUM CHLORIDE 0.9% 250ML 250 ML ONE (18:10)
[2020-11-02 19:14] LABS: CLARITY,URINE CLEAR (CLEAR); COLOR,URINE YELLOW (YELLOW); KETONES,URINE NEGATIVE (NEGATIVE); LEUKOCYTE ESTERASE ,URINE NEGATIVE (NEGATIVE); NITRITE,URINE NEGATIVE (NEGATIVE); PROTEIN,URINE DIPSTICK NEGATIVE (NEGATIVE); URINE UROBILINOGEN 0.2 mg/dL (0.2 - 1)
[2020-11-02 19:23] LABS: BACTERIA,URINE MODERATE /HPF
== END 2020-11-02 19:25 | disposition left against medical advice (07) | DRG 812 ==
LOC: ER 09:40 → ERHOLD 11:10
PROVIDERS: ADMIT Internal Medicine; ATTEND Internal Medicine
PROC: 30233N1 Transfusion of Nonautologous Red Blood Cells into Peripheral Vein, Percutaneous Approach (ICD-10-PCS; principal; 2020-11-02)
DX: D64.9 Anemia, unspecified (principal); J44.9 Chronic obstructive pulmonary disease, unspecified; I48.91 Unspecified atrial fibrillation; Z79.01 Long term (current) use of anticoagulants; I10 Essential (primary) hypertension; I11.0 Hypertensive heart disease with heart failure; I50.9 Heart failure, unspecified; Z96.649 Presence of unspecified artificial hip joint; Z53.29 Procedure and treatment not carried out because of patient's decision for other reasons
CPT/HCPCS: 36415; 71045; 80053; 81001; 83880; 84484; 85014; 85018; 85025; 85379; 86850; 86900; 86920; 93005; 99284; J7050; P9016

== ENCOUNTER 2023-12-17 09:47 | Inpatient (IN) | payer MEDICARE ==
[2023-12-17] VITALS (24 sets, daily range): BP systolic 91–165; BP diastolic 37–94; PULSE 49–65; RESP 14–29; TEMP 97.2–98; O2SAT 96–100
[~2023-12-17] VITALS: Ht 162.6 cm; Wt 73.7 kg
[2023-12-17] MEDS ORDERED: CEFTRIAXONE 1 GM VIAL ONE (13:19)
[2023-12-17] MEDS ORDERED: ACETAMINOPHEN 325 MG TAB PO PRN (14:00)
[2023-12-17] MEDS ORDERED: DEXTROSE 50% SYRINGE 50 ML IV PRN (14:00)
[2023-12-17] MEDS ORDERED: ONDANSETRON HCL INJ 2MG/ML 2ML 2 MG/ML VIAL IV PRN (14:00)
[2023-12-17] MEDS: FUROSEMIDE INJ 10 MG/ML 4 ML VIAL IV SCH (14:52)
[2023-12-17] MEDS: INSULIN LISPRO 100 UNIT/1 ML 3ML VIAL SQ SCH (16:30)
[2023-12-17 17:27] LABS: TROPONIN I 0.026 ng/mL (0-0.300)
[2023-12-17] MEDS: ENOXAPARIN SOD INJ 40 MG/0.4 ML SYR SC SCH (17:48)
[2023-12-17] MEDS: SIMVASTATIN 20 MG TAB PO SCH (20:36)
[2023-12-17] MEDS: ROPINIROLE HCL 2 MG TAB PO SCH (20:36)
[2023-12-18] VITALS (13 sets, daily range): BP systolic 107–171; BP diastolic 38–69; PULSE 49–78; RESP 13–22; TEMP 97.8–98.6; O2SAT 94–100
[2023-12-18 07:11] LABS: BASOPHILS % 0.8 % (0.0-1.0); EOSINOPHILS # (AUTO) 0.3 (0.0-0.4); EOSINOPHILS % 6.1 % (0.0-6.0); HEMOGLOBIN 8.1 g/dL (12.0-16.0); LYMPHOCYTES # (AUTO) 1.1 (1.0-3.2); MONOCYTES # (AUTO) 0.5 (0.2-0.8); NEUTROPHILS # (AUTO) 2.9 (2.1-6.9); NEUTROPHILS % 59.9 % (38.7-80.0); PLATELET COUNT 157 x10e3/uL (140-360); RED CELL DISTRIBUTION WIDTH 16.2 % (11.7-14.4); WHITE BLOOD COUNT 4.88 x10e3/uL (4.8-10.8)
[2023-12-18 07:27] LABS: CHOL/HDL RATIO 2.5 (3.0-3.6)
[2023-12-18 07:28] LABS: ANION GAP 14.6 mmol/L (8-16); CALCIUM 8.1 mg/dL (8.4-10.2); CREATININE, SERUM 0.84 mg/dL (0.57-1.11); MAGNESIUM 1.9 MG/DL (1.3-2.1); PHOSPHORUS 3.9 MG/DL (2.3-4.7); POTASSIUM 3.6 mmol/L (3.5-5.1)
[2023-12-18 07:35] LABS: FERRITIN 29.65 ng/mL (4.63-204.00); THYROID STIMULATING HORMONE 1.039 uIU/mL (0.350-4.940)
[2023-12-18 07:42] LABS: TROPONIN I 0.012 ng/mL (0-0.300)
[2023-12-18] MEDS: DOCUSATE SODIUM 100 MG CAP PO SCH (09:00)
[2023-12-18] MEDS: SENNOSIDES 8.6 MG TAB PO SCH (09:00)
[2023-12-18] MEDS: POTASSIUM CHLORIDE 10MEQ EA PO SCH (09:03)
[2023-12-18] MEDS: PANTOPRAZOLE SOD 40 MG TABEC PO SCH (09:03)
[2023-12-18] MEDS: CYANOCOBALAMIN 1,000 MCG TAB PO SCH (14:09)
[2023-12-18] MEDS: FERROUS SULFATE 325 MG TAB PO SCH (14:09)
[2023-12-18 15:58] LABS: TROPONIN I 0.013 ng/mL (0-0.300)
[2023-12-19] VITALS (7 sets, daily range): BP systolic 102–137; BP diastolic 49–70; PULSE 50–62; RESP 16–20; TEMP 98–98.1; O2SAT 97–100
[2023-12-19 05:59] LABS: BASOPHILS % 0.2 % (0.0-1.0); EOSINOPHILS # (AUTO) 0.3 (0.0-0.4); EOSINOPHILS % 5.8 % (0.0-6.0); HEMATOCRIT 26.9 % (34.2-44.1); HEMOGLOBIN 8.3 g/dL (12.0-16.0); LYMPHOCYTES # (AUTO) 1.2 (1.0-3.2); LYMPHOCYTES % 23.9 % (18.0-39.1); MEAN CORPUSCULAR HEMOGLOBIN 29.7 pg (28-32); MEAN CORPUSCULAR HGB CONC 30.9 g/dL (31-35); MEAN CORPUSCULAR VOLUME 96.4 fL (81-99); MONOCYTES # (AUTO) 0.6 (0.2-0.8); MONOCYTES % 11.3 % (4.4-11.3); NEUTROPHILS # (AUTO) 2.8 (2.1-6.9); NEUTROPHILS % 58.6 % (38.7-80.0); PLATELET COUNT 175 x10e3/uL (140-360); RED BLOOD COUNT 2.79 x10e6/uL (3.6-5.1); RED CELL DISTRIBUTION WIDTH 16.1 % (11.7-14.4); WHITE BLOOD COUNT 4.85 x10e3/uL (4.8-10.8)
[2023-12-19 06:34] LABS: ANION GAP 9.9 mmol/L (8-16); CALCIUM 8.7 mg/dL (8.4-10.2); CREATININE, SERUM 0.86 mg/dL (0.57-1.11); POTASSIUM 3.9 mmol/L (3.5-5.1)
[2023-12-19] MEDS: SODIUM CHLORIDE 0.9% 250ML 250 ML ONE (08:45)
[2023-12-19] MEDS ORDERED: ONDANSETRON HCL 4 MG ORAL DISINTEGRATING TAB PO PRN (11:45)
[2023-12-19] MEDS ORDERED: B-121000 MC1 PO (14:28)
[2023-12-19] MEDS ORDERED: FEROSUL325 MG PO (14:28)
[2023-12-19] MEDS ORDERED: METOPROLOL SUCC25 MG PO (14:28)
[2023-12-19] MEDS: BENZOCAINE 20% SPR 60 ML CAN ONE (14:46)
[2023-12-19] MEDS: SODIUM CHLORIDE 0.9% 1000ML 1,000 ML ONE (14:47)
[2023-12-19] MEDS ORDERED: LIDOCAINE HCL 2% LOCAL INJ 5 ML SDV VIAL INJ ONE (16:52)
[2023-12-19] MEDS ORDERED: PROPOFOL IV EMULSION 10 MG/ML 20 ML VIAL ONE (16:52)
[2023-12-20] MEDS ORDERED: FUROSEMIDE 40 MG TAB PO SCH (09:00)
== END 2023-12-19 16:10 | disposition home or self-care (01) | DRG 309 ==
LOC: FSED 09:56 → ERHOLD 11:48 → ICU 13:07 → MED/SURG2 12-18 17:40
PROVIDERS: ADMIT Internal Medicine; ATTEND Internal Medicine
PROC: 4B02XSZ Measurement of Cardiac Pacemaker, External Approach (ICD-10-PCS; 2023-12-17)
PROC: 5A2204Z Restoration of Cardiac Rhythm, Single (ICD-10-PCS; principal; 2023-12-19)
PROC: B24BZZ4 Ultrasonography of Heart with Aorta, Transesophageal (ICD-10-PCS; 2023-12-19)
DX: I48.92 Unspecified atrial flutter (principal); I50.32 Chronic diastolic (congestive) heart failure; I48.91 Unspecified atrial fibrillation; I11.0 Hypertensive heart disease with heart failure; E11.59 Type 2 diabetes mellitus with other circulatory complications; Z79.84 Long term (current) use of oral hypoglycemic drugs; R00.1 Bradycardia, unspecified; Z45.018 Encounter for adjustment and management of other part of cardiac pacemaker; Z95.818 Presence of other cardiac implants and grafts; J44.9 Chronic obstructive pulmonary disease, unspecified; G47.33 Obstructive sleep apnea (adult) (pediatric); M81.0 Age-related osteoporosis without current pathological fracture; G25.81 Restless legs syndrome; D50.9 Iron deficiency anemia, unspecified; E53.8 Deficiency of other specified B group vitamins; Z79.899 Other long term (current) drug therapy
CPT/HCPCS: 36415; 71046; 78580; 80048; 80053; 80061; 81003; 82550; 82553; 82607; 82728; 82948; 83540; 83735; 83880; 84100; 84443; 84466; 84484; 85025; 85379; 87086; 92960; 93005; 93306; 93312; 93320; 93325; 93355; 94760; 99252; 99284; A9540; J0696; J1650; J1940; J2001; J7030; J7050

== ENCOUNTER → 2024-06-06 | Outpatient (REF) | payer MEDICARE ==
[~2024-06-06] MED LIST changes: +B-121000 MC1 PO; +FEROSUL325 MG PO
== END ==
LOC: RAD 08:43
PROVIDERS: ATTEND Internal Medicine
DX: J96.01 Acute respiratory failure with hypoxia (principal)
CPT/HCPCS: 71046

== ENCOUNTER 2025-02-03 04:04 | Inpatient (IN) | payer MEDICARE ==
[2025-02-03] VITALS (8 sets, daily range): BP systolic 120–131; BP diastolic 33–55; PULSE 65–71; RESP 16–20; TEMP 97.9–98.5; O2SAT 96–98
[~2025-02-03] VITALS: Ht 162.6 cm; Wt 78.0 kg
[2025-02-03 04:32] LABS: BASOPHILS % 0.7 % (0.0-1.0); EOSINOPHILS # (AUTO) 0.5 (0.0-0.4); EOSINOPHILS % 8.7 % (0.0-6.0); HEMATOCRIT 27.2 % (34.2-44.1); HEMOGLOBIN 8.5 g/dL (12.0-16.0); LYMPHOCYTES # (AUTO) 1.2 (1.0-3.2); LYMPHOCYTES % 21.6 % (18.0-39.1); MEAN CORPUSCULAR HEMOGLOBIN 32.1 pg (28-32); MEAN CORPUSCULAR HGB CONC 31.3 g/dL (31-35); MEAN CORPUSCULAR VOLUME 102.6 fL (81-99); MONOCYTES # (AUTO) 0.5 (0.2-0.8); MONOCYTES % 8.7 % (4.4-11.3); NEUTROPHILS # (AUTO) 3.4 (2.1-6.9); PLATELET COUNT 184 x10e3/uL (140-360); RED BLOOD COUNT 2.65 x10e6/uL (3.6-5.1); RED CELL DISTRIBUTION WIDTH 13.3 % (11.7-14.4); WHITE BLOOD COUNT 5.73 x10e3/uL (4.8-10.8)
[2025-02-03 05:00] LABS: BILIRUBIN,URINE NEGATIVE (NEGATIVE); CLARITY,URINE SL CLOUDY (CLEAR); COLOR,URINE YELLOW (YELLOW); GLUCOSE, URINE NEGATIVE (NEGATIVE); KETONES,URINE NEGATIVE (NEGATIVE); LEUKOCYTE ESTERASE ,URINE NEGATIVE (NEGATIVE); NITRITE,URINE NEGATIVE (NEGATIVE); PH,URINE 6 (5 - 7); PROTEIN,URINE DIPSTICK TRACE (NEGATIVE); URINE UROBILINOGEN 1 mg/dL (0.2 - 1)
[2025-02-03 05:03] LABS: ALBUMIN 3.4 g/dL (3.5-5.0); ALBUMIN/GLOBULIN RATIO 1.3 (0.8-2.0); ANION GAP 14.8 mmol/L (8-16); BILIRUBIN,TOTAL 0.5 mg/dL (0.2-1.2); CALCIUM 8.7 mg/dL (8.4-10.2); CREATININE, SERUM 0.96 mg/dL (0.57-1.11); POTASSIUM 3.8 mmol/L (3.5-5.1); TOTAL PROTEIN 6.1 g/dL (6.5-8.1)
[2025-02-03 05:08] LABS: TROPONIN I 0.005 ng/mL (0-0.300)
[2025-02-03] MEDS ORDERED: IOPAMIDOL 370 MG/ML 100 ML INFUS..BTL INJ ONE (05:20)
[2025-02-03 05:24] LABS: BACTERIA,URINE MODERATE /HPF; EPITHELIAL CELLS,URINE MODERATE /LPF
[2025-02-03] MEDS: SODIUM CHLORIDE 0.9% 1000ML 1,000 ML IV STA (05:56)
[2025-02-03] MEDS ORDERED: ONDANSETRON HCL INJ 2MG/ML 2ML 2 MG/ML VIAL IV PRN (06:15)
[2025-02-03] MEDS ORDERED: SODIUM CHLORIDE FLUSH 10 ML SYR INJ PRN (06:15)
[2025-02-03] MEDS: FUROSEMIDE INJ 10 MG/ML 4 ML VIAL IV SCH (07:16)
[2025-02-03] MEDS ORDERED: POLYETHYLENE GLYCOL 3350 17 GM PACK PO PRN (09:45)
[2025-02-03] MEDS ORDERED: HYDRALAZINE HCL 20 MG/ML VIAL IV PRN (09:45)
[2025-02-03] MEDS ORDERED: ACETAMINOPHEN 325 MG TAB PO PRN (09:45)
[2025-02-03] MEDS ORDERED: BISACODYL 10 MG SUPP PR PRN (09:45)
[2025-02-03 12:14] LABS: FERRITIN 35.29 ng/mL (4.63-204.00)
[2025-02-03] MEDS: ROPINIROLE HCL 1 MG TAB PO ONE (16:52)
[2025-02-03 17:04] LABS: TROPONIN I 0.013 ng/mL (0-0.300)
[2025-02-03] MEDS: SIMVASTATIN 20 MG TAB PO SCH (22:29)
[2025-02-03] MEDS: ROPINIROLE HCL 1 MG TAB PO SCH (22:29)
[2025-02-04] VITALS (9 sets, daily range): BP systolic 116–134; BP diastolic 42–55; PULSE 60–70; RESP 17–18; TEMP 97.4–98.6; O2SAT 97–100
[2025-02-04 00:38] LABS: TROPONIN I 0.016 ng/mL (0-0.300)
[2025-02-04 05:45] LABS: BASOPHILS # (AUTO) 0.1 (0.0-0.1); BASOPHILS % 0.9 % (0.0-1.0); EOSINOPHILS # (AUTO) 0.5 (0.0-0.4); HEMATOCRIT 25.5 % (34.2-44.1); LYMPHOCYTES % 18.5 % (18.0-39.1); MEAN CORPUSCULAR HEMOGLOBIN 32.3 pg (28-32); MEAN CORPUSCULAR HGB CONC 31.4 g/dL (31-35); MEAN CORPUSCULAR VOLUME 102.8 fL (81-99); MONOCYTES # (AUTO) 0.6 (0.2-0.8); MONOCYTES % 11.5 % (4.4-11.3); NEUTROPHILS # (AUTO) 3.1 (2.1-6.9); NEUTROPHILS % 58.9 % (38.7-80.0); PLATELET COUNT 159 x10e3/uL (140-360); RED BLOOD COUNT 2.48 x10e6/uL (3.6-5.1); RED CELL DISTRIBUTION WIDTH 13.4 % (11.7-14.4); WHITE BLOOD COUNT 5.29 x10e3/uL (4.8-10.8)
[2025-02-04 06:14] LABS: ALBUMIN/GLOBULIN RATIO 1.1 (0.8-2.0); ANION GAP 13.5 mmol/L (8-16); BILIRUBIN,TOTAL 0.6 mg/dL (0.2-1.2); CALCIUM 8.4 mg/dL (8.4-10.2); CREATININE, SERUM 0.9 mg/dL (0.57-1.11); POTASSIUM 3.5 mmol/L (3.5-5.1); TOTAL PROTEIN 5.7 g/dL (6.5-8.1)
[2025-02-04] MEDS: IRON SUCROSE 100 MG in SODIUM CHLORIDE 0.9% 100 ML IV SCH (09:04)
[2025-02-04] MEDS: METOPROLOL SUCCINATE 25 MG TAB XL PO SCH (09:05)
[2025-02-04] MEDS ORDERED: IRON SUCROSE 100 MG in SODIUM CHLORIDE 0.9% 100 ML IV SCH (18:00)
[2025-02-04] MEDS: IRON SUCROSE 100 MG in SODIUM CHLORIDE 0.9% 100 ML IV ONE (18:14)
[2025-02-05] VITALS: BP 136/45; PULSE 60; RESP 18; TEMP 97.8; O2SAT 94
[2025-02-05 04:00] VITALS: BP 116/50; PULSE 59; RESP 20; TEMP 97.7; O2SAT 100
[2025-02-05 05:47] LABS: BASOPHILS % 0.7 % (0.0-1.0); EOSINOPHILS # (AUTO) 0.5 (0.0-0.4); HEMATOCRIT 27.9 % (34.2-44.1); HEMOGLOBIN 8.9 g/dL (12.0-16.0); LYMPHOCYTES # (AUTO) 0.8 (1.0-3.2); LYMPHOCYTES % 13.4 % (18.0-39.1); MEAN CORPUSCULAR HEMOGLOBIN 32.4 pg (28-32); MEAN CORPUSCULAR HGB CONC 31.9 g/dL (31-35); MEAN CORPUSCULAR VOLUME 101.5 fL (81-99); MONOCYTES # (AUTO) 0.6 (0.2-0.8); MONOCYTES % 10.8 % (4.4-11.3); NEUTROPHILS # (AUTO) 3.8 (2.1-6.9); NEUTROPHILS % 65.8 % (38.7-80.0); PLATELET COUNT 162 x10e3/uL (140-360); RED BLOOD COUNT 2.75 x10e6/uL (3.6-5.1); RED CELL DISTRIBUTION WIDTH 13.1 % (11.7-14.4); WHITE BLOOD COUNT 5.75 x10e3/uL (4.8-10.8)
[2025-02-05 06:20] VITALS: PULSE 74; RESP 22; O2SAT 97
[2025-02-05 06:35] LABS: ANION GAP 14.5 mmol/L (8-16); CALCIUM 8.4 mg/dL (8.4-10.2); CREATININE, SERUM 1.01 mg/dL (0.57-1.11); POTASSIUM 3.5 mmol/L (3.5-5.1)
[2025-02-05 08:00] VITALS: BP 114/57; PULSE 61; RESP 16; TEMP 98.3; O2SAT 99
[2025-02-05 12:00] VITALS: BP 119/52; PULSE 64; RESP 17; TEMP 97.9; O2SAT 99
== END 2025-02-05 13:44 | disposition home or self-care (01) | DRG 291 ==
LOC: ER 04:12 → ERHOLD 07:04 → MED/SURG2 14:49
PROVIDERS: ADMIT Internal Medicine; ATTEND Internal Medicine
PROC: 02HV33Z Insertion of Infusion Device into Superior Vena Cava, Percutaneous Approach (ICD-10-PCS; principal; 2025-02-04)
DX: I11.0 Hypertensive heart disease with heart failure (principal); I50.33 Acute on chronic diastolic (congestive) heart failure; I48.92 Unspecified atrial flutter; K62.5 Hemorrhage of anus and rectum; I27.20 Pulmonary hypertension, unspecified; Z99.81 Dependence on supplemental oxygen; E11.9 Type 2 diabetes mellitus without complications; D64.9 Anemia, unspecified; E78.5 Hyperlipidemia, unspecified; I48.0 Paroxysmal atrial fibrillation; G25.81 Restless legs syndrome; J44.9 Chronic obstructive pulmonary disease, unspecified; I25.10 Atherosclerotic heart disease of native coronary artery without angina pectoris; G47.33 Obstructive sleep apnea (adult) (pediatric); M81.0 Age-related osteoporosis without current pathological fracture; K62.89 Other specified diseases of anus and rectum; R06.02 Shortness of breath; E66.9 Obesity, unspecified; Z68.29 Body mass index [BMI] 29.0-29.9, adult; Z95.0 Presence of cardiac pacemaker; Z95.818 Presence of other cardiac implants and grafts; Z90.49 Acquired absence of other specified parts of digestive tract; Z88.5 Allergy status to narcotic agent; Z82.5 Family history of asthma and other chronic lower respiratory diseases
CPT/HCPCS: 36415; 71045; 74174; 80048; 80053; 81001; 82550; 82607; 82728; 82746; 83540; 83690; 83735; 83880; 84466; 84484; 85025; 85045; 86850; 86900; 93005; 93306; 94660; 94799; 99284; J1756; J1938; J2405; J2470; J7030; J7050; Q9967

== ENCOUNTER 2025-04-02 10:35 | Emergency (ER) | payer MEDICARE ==
[~2025-04-02] VITALS: Ht 162.6 cm; Wt 72.6 kg
[~2025-04-02 10:35] MED LIST changes: +CARAFATE1 GM PO; +POTASSIUM CHLO20 ME1 PO
[2025-04-02 10:44] VITALS: TEMP 98
[2025-04-02 11:26] LABS: BASOPHILS # (AUTO) 0.1 (0.0-0.1); EOSINOPHILS # (AUTO) 0.5 (0.0-0.4); EOSINOPHILS % 10.5 % (0.0-6.0); HEMATOCRIT 31.8 % (34.2-44.1); LYMPHOCYTES % 20.7 % (18.0-39.1); MEAN CORPUSCULAR HEMOGLOBIN 31.3 pg (28-32); MEAN CORPUSCULAR HGB CONC 31.4 g/dL (31-35); MEAN CORPUSCULAR VOLUME 99.4 fL (81-99); MONOCYTES # (AUTO) 0.5 (0.2-0.8); MONOCYTES % 9.9 % (4.4-11.3); NEUTROPHILS # (AUTO) 2.8 (2.1-6.9); NEUTROPHILS % 57.7 % (38.7-80.0); PLATELET COUNT 173 x10e3/uL (140-360); RED CELL DISTRIBUTION WIDTH 13.8 % (11.7-14.4); WHITE BLOOD COUNT 4.93 x10e3/uL (4.8-10.8)
[2025-04-02 11:46] LABS: ALBUMIN 3.6 g/dL (3.5-5.0); ALBUMIN/GLOBULIN RATIO 1.1 (0.8-2.0); ANION GAP 16.4 mmol/L (8-16); BILIRUBIN,TOTAL 0.9 mg/dL (0.2-1.2); CALCIUM 9.3 mg/dL (8.4-10.2); CREATININE, SERUM 0.88 mg/dL (0.57-1.11); POTASSIUM 4.4 mmol/L (3.5-5.1); TOTAL PROTEIN 6.8 g/dL (6.5-8.1)
[2025-04-02 12:00] VITALS: PULSE 64; RESP 18; O2SAT 99
== END 2025-04-02 12:43 | disposition home or self-care (01) ==
LOC: ER 10:54
DX: K92.1 Melena (principal); I10 Essential (primary) hypertension; E11.9 Type 2 diabetes mellitus without complications; J44.9 Chronic obstructive pulmonary disease, unspecified; I50.9 Heart failure, unspecified; I48.91 Unspecified atrial fibrillation; I25.10 Atherosclerotic heart disease of native coronary artery without angina pectoris; E78.5 Hyperlipidemia, unspecified; D64.9 Anemia, unspecified; G25.81 Restless legs syndrome; Z87.19 Personal history of other diseases of the digestive system; Z95.810 Presence of automatic (implantable) cardiac defibrillator
CPT/HCPCS: 36415; 80053; 85025; 99283

== ENCOUNTER 2025-07-11 10:21 | Emergency (ER) | payer MEDICARE ==
[~2025-07-11] VITALS: Ht 162.6 cm; Wt 77.1 kg
[2025-07-11 10:21] VITALS: TEMP 98.3
[2025-07-11] MEDS ORDERED: VITAMIN D250 MC1 (11:04)
[2025-07-11 13:39] VITALS: PULSE 50; RESP 20; O2SAT 100
== END 2025-07-11 13:58 | disposition home or self-care (01) ==
LOC: FSED 10:26
DX: R06.00 Dyspnea, unspecified (principal); J44.9 Chronic obstructive pulmonary disease, unspecified; D64.9 Anemia, unspecified; I48.91 Unspecified atrial fibrillation; I10 Essential (primary) hypertension; E11.9 Type 2 diabetes mellitus without complications; I50.9 Heart failure, unspecified; E78.5 Hyperlipidemia, unspecified; R53.83 Other fatigue; G25.81 Restless legs syndrome; Z87.19 Personal history of other diseases of the digestive system; Z95.810 Presence of automatic (implantable) cardiac defibrillator
CPT/HCPCS: 71046; 80048; 80076; 81003; 83880; 84484; 85025; 85379; 93005; 99284